=== PATIENT | male | born 1995 | race Hispanic/Latino ===

== ENCOUNTER 2020-08-05 21:40 | Emergency (ER) | payer BC ==
[~2020-08-05] VITALS: Ht 177.8 cm; Wt 90.7 kg
[2020-08-05] MEDS ORDERED: KEFLEX125 MG/5 M PO (23:28)
[2020-08-05] MEDS ORDERED: BACITRACIN ZINC 0.9GM TP ONE (23:34)
[2020-08-05 23:35] VITALS: BP 138/68
== END 2020-08-05 23:35 | disposition home or self-care (01) ==
LOC: FSED 22:15
DX: S81.012A Laceration without foreign body, left knee, initial encounter (principal); W22.09XA Striking against other stationary object, initial encounter; Y92.008 Other place in unspecified non-institutional (private) residence as the place of occurrence of the external cause
CPT/HCPCS: 99283